=== PATIENT | male | born 1975 | race Caucasian/White ===

== ENCOUNTER 2020-01-20 11:48 | Emergency (ER) | payer SELFPAY ==
[~2020-01-20] VITALS: Ht 167.6 cm; Wt 84.4 kg
[2020-01-20 11:48] VITALS: Ht 167.6 cm; Wt 84.4 kg
[2020-01-20 12:25] LABS: BASOPHIL % 0.9 % (0-2); PLATELET COUNT 294 x10^3mcL (130-400); RED CELL DISTRIBUTION WIDTH 13.7 % (11.5-14.5)
[2020-01-20 12:46] LABS: CALCIUM 9.8 mg/dL (8.5-10.1); CARBON DIOXIDE 33.8 mmol/L (21-32); CHLORIDE SERUM 104 mmol/L (98-107); CREATININE SERUM 1.2 mg/dL (0.7-1.3); GFR1 > 60 mL/min; GLUCOSE SERUM 120 mg/dL (74-106); POTASSIUM SERUM 3.8 mmol/L (3.5-5.1); SODIUM SERUM 139 mmol/L (136-145)
[2020-01-20 12:50] LABS: ALBUMIN 3.9 g/dL (3.4-5.0); ALKALINE PHOSPHATASE 75 U/L (46-116); ALT/SGPT 70 U/L (16-63); AST/SGOT 25 U/L (15-37); BILIRUBIN TOTAL 0.33 mg/dL (0.20-1.00); LIPASE 135 IU/L (73-393); TOTAL PROTEIN, SERUM 7.5 g/dL (6.4-8.2)
[2020-01-20 15:20] VITALS: BP 138/72
== END 2020-01-20 15:20 | disposition home or self-care (01) ==
LOC: ED 11:48
PROVIDERS: Emergency Medicine
DX: R10.813 Right lower quadrant abdominal tenderness (principal); R11.0 Nausea
CPT/HCPCS: J1885; J2405

== ENCOUNTER 2020-01-23 18:01 | Emergency (ER) | payer SELFPAY ==
[~2020-01-23] VITALS: Ht 167.6 cm; Wt 86.2 kg
[2020-01-23 18:19] VITALS: Ht 167.6 cm; Wt 86.2 kg
[2020-01-23 20:58] VITALS: BP 129/66
== END 2020-01-23 20:58 | disposition home or self-care (01) ==
LOC: ED 18:01
DX: K29.70 Gastritis, unspecified, without bleeding (principal)

== ENCOUNTER 2020-01-26 20:18 | Emergency (ER) | payer SELFPAY ==
[~2020-01-26] VITALS: Ht 167.6 cm; Wt 83.9 kg
[2020-01-26 20:32] VITALS: BP 156/69; Ht 167.6 cm; Wt 83.9 kg
[2020-01-26 21:08] LABS: BASOPHIL % 0.5 % (0-2); PLATELET COUNT 310 x10^3mcL (130-400); RED CELL DISTRIBUTION WIDTH 14.1 % (11.5-14.5)
[2020-01-26 21:12] LABS: CALCIUM 8.8 mg/dL (8.5-10.1); CARBON DIOXIDE 30.7 mmol/L (21-32); CREATININE SERUM 1.4 mg/dL (0.7-1.3); POTASSIUM SERUM 3.9 mmol/L (3.5-5.1)
[2020-01-26 21:16] LABS: ALBUMIN 3.8 g/dL (3.4-5.0); BILIRUBIN TOTAL 0.22 mg/dL (0.20-1.00); TOTAL PROTEIN, SERUM 7.4 g/dL (6.4-8.2)
== END 2020-01-27 00:03 | disposition home or self-care (01) ==
LOC: ED 20:18
DX: K21.9 Gastro-esophageal reflux disease without esophagitis (principal)

== ENCOUNTER 2020-03-30 19:47 | Emergency (ER) | payer MEDICAID ==
[~2020-03-30] VITALS: Ht 167.6 cm; Wt 83.9 kg
[2020-03-30 20:02] VITALS: Ht 167.6 cm; Wt 83.9 kg
[2020-03-30 21:28] LABS: BASOPHIL % 0.4 % (0-2); PLATELET COUNT 287 x10^3mcL (130-400); RED CELL DISTRIBUTION WIDTH 13.1 % (11.5-14.5)
[2020-03-30 21:33] LABS: CALCIUM 9.2 mg/dL (8.5-10.1); CARBON DIOXIDE 30.3 mmol/L (21-32); CHLORIDE SERUM 103 mmol/L (98-107); CREATININE SERUM 1.1 mg/dL (0.7-1.3); GFR1 > 60 mL/min; GLUCOSE SERUM 96 mg/dL (74-106); POTASSIUM SERUM 3.6 mmol/L (3.5-5.1); SODIUM SERUM 140 mmol/L (136-145)
[2020-03-30 21:38] LABS: ALBUMIN 4.2 g/dL (3.4-5.0); ALKALINE PHOSPHATASE 73 U/L (46-116); ALT/SGPT 24 U/L (16-63); AST/SGOT 17 U/L (15-37); BILIRUBIN TOTAL 0.31 mg/dL (0.20-1.00)
[2020-03-30 23:16] VITALS: BP 121/82
== END 2020-03-30 23:16 | disposition home or self-care (01) ==
LOC: ED 19:47
PROVIDERS: Emergency Medicine
DX: R51.9 Headache, unspecified (principal)

== ENCOUNTER 2020-04-25 12:02 | Emergency (ER) | payer MEDICAID ==
[~2020-04-25] VITALS: Ht 167.6 cm; Wt 80.3 kg
[2020-04-25 12:10] VITALS: Ht 167.6 cm; Wt 80.3 kg
[2020-04-25 12:38] VITALS: BP 130/77
== END 2020-04-25 12:38 | disposition home or self-care (01) ==
LOC: ED 12:02
DX: K64.4 Residual hemorrhoidal skin tags (principal)

== ENCOUNTER 2020-06-12 14:11 | Emergency (ER) | payer MEDICAID ==
[~2020-06-12] VITALS: Ht 172.7 cm; Wt 81.6 kg
[2020-06-12 14:26] VITALS: BP 110/57; Ht 172.7 cm; Wt 81.6 kg
[2020-06-12 15:23] LABS: BASOPHIL % 1.2 % (0.2-1.5); PLATELET COUNT 304 x10^3mcL (152-348); RED CELL DISTRIBUTION WIDTH 13.3 % (12.1-16.2)
[2020-06-12 15:49] LABS: CALCIUM 9.1 mg/dL (8.5-10.1); CHLORIDE SERUM 105 mmol/L (98-107); CREATININE SERUM 1.1 mg/dL (0.7-1.3); GFR1 > 60 mL/min; GLUCOSE SERUM 87 mg/dL (74-106); SODIUM SERUM 140 mmol/L (136-145)
[2020-06-12 15:54] LABS: ALBUMIN 3.8 g/dL (3.4-5.0); ALKALINE PHOSPHATASE 90 U/L (46-116); ALT/SGPT 33 U/L (16-63); AST/SGOT 14 U/L (15-37); BILIRUBIN TOTAL 0.41 mg/dL (0.20-1.00); TOTAL PROTEIN, SERUM 7.8 g/dL (6.4-8.2)
== END 2020-06-12 18:37 | disposition home or self-care (01) ==
LOC: ED 14:11
PROVIDERS: Emergency Medicine
DX: R07.89 Other chest pain (principal)